=== PATIENT | female | born 1945 | race Caucasian/White ===

== ENCOUNTER 2023-12-05 17:29 | Emergency (ER) | payer OTHER ==
[~2023-12-05] VITALS: Ht 124.5 cm; Wt 54.0 kg
[~2023-12-05 17:29] MED LIST: METF-370 PO
[2023-12-05 18:00] VITALS: BP 133/104; PULSE 85; RESP 18; O2SAT 97
== END 2023-12-05 19:30 | disposition home or self-care (01) ==
LOC: ER 17:29
DX: R53.1 Weakness (principal); T50.7X5A Adverse effect of analeptics and opioid receptor antagonists, initial encounter; E78.5 Hyperlipidemia, unspecified; E11.9 Type 2 diabetes mellitus without complications; Z86.73 Personal history of transient ischemic attack (TIA), and cerebral infarction without residual deficits; Z88.0 Allergy status to penicillin; Z91.041 Radiographic dye allergy status; Z90.49 Acquired absence of other specified parts of digestive tract; Z90.710 Acquired absence of both cervix and uterus; Y92.89 Other specified places as the place of occurrence of the external cause